=== PATIENT | female | born 1985 | race Caucasian/White ===

== ENCOUNTER 2018-12-17 06:06 | Emergency (ER) | payer MEDICARE ==
[2018-12-17] MEDS ORDERED: TORAdol 30 mg Injection IV ONE (06:40)
[2018-12-17] MEDS ORDERED: Sodium Chloride 0.9% 1000 ML 1,000 ML IV STA (06:40)
[2018-12-17 06:45] LABS: BASOPHIL % 0.3 % (0.0-0.4); Basophil (Absolute #) 0.03 (0-0.4); Eosinophil % 1.5 % (0.00-5.0); Eosinophil (Absolute #) 0.16 (0-0.5); Granulocytes % 63.8 % (36.0-66.0); Hematocrit 40.7 % (35-47); Hemoglobin 13.3 gm/dl (12.0-16.0); Lymphocyte (Absolute #) 2.92 (1.0-4.6); Lymphocytes % 27.8 % (24.0-44.0); Mean Cell Volume 93.3 fl (78-100); Mean Corpuscular Hemoglobin 30.5 pg (26-32); Mean Corpuscular Hgb Concent. 32.7 g/dl (32-36); Mean Platelet Volume 10.9 fl (6-9.5); Monocyte (Absolute #) 0.69 (0.0-1.3); Monocytes % 6.6 % (0.0-12.0); Platelet Count 350 K/mm3 (150-450); Red Blood Count 4.36 M/mm3 (4.1-5.4); Red Cell Distribution Width 13.8 % (11.5-14.0); White Blood Count 10.5 K/mm3 (4.0-10.5)
[2018-12-17] MEDS ORDERED: TORAdol 30 mg Injection ONE (06:46)
[2018-12-17] MEDS ORDERED: Sodium Chloride 0.9% 1000 ML 1,000 ML ONE (06:46)
[2018-12-17 06:59] LABS: Appearance CLEAR (CLEAR); Bacteria RARE /HPF (NEGATIVE); Bilirubin NEGATIVE (NEGATIVE); Blood NEGATIVE Ery/ul (0-5); Epithelial Cells FEW /HPF (FEW); Glucose NEGATIVE (NEGATIVE); Ketones NEGATIVE (NEGATIVE); Leukocyte Esterase NEGATIVE (NEGATIVE); Mucus SLIGHT /HPF (NEGATIVE); Nitrite NEGATIVE (NEGATIVE); Protein,Urine Dip NEGATIVE (Negative); Specific Gravity 1.006 (1.005-1.025); Urobilinogen NEGATIVE mg/dL (0-1); WBC 0-2 /HPF (0-5)
--- NOTE | 2018-12-17 06:59 | ERPHSYRPT ---
- History of Present Illness Exam Limitations: no limitations Patient Subjective Stated Complaint: pt states she has had lower abd pain for the last week. states she was seen at [facility] er recently and had a ct scan with iv dye done. states she has been having problems with abd pain for years and has had mult xryas and ct scans done. Triage Nursing Assessment: pt alert and oriented, answers questions approp. pt ambulatoryw ith steady gait noted. skin pink warm and dry. respirations nonlabored with lungs cta. abd soft and nontender to light palpation. bowel sounds present x4 Timing/Duration: today Activities at Onset: none Quality: aching, stabbing Abdominal Pain Onset Location: RLQ, LLQ, other (back) Pain Radiation: RLQ, LLQ Severity of Pain-Max: severe Severity of Pain-Current: severe Modifying Factors: Worsens With: breathing, coughing, defecating, eating, lying down, movement, rest Associated Symptoms: back, No chest pain, No diaphoresis, No diarrhea, No fever/ chills, No fatigue, No headache, No heartburn, No loss of appetite, No nausea, No neck pain, No rash, No shortness of breath, No syncope, No vomiting, No weakness Previous symptoms: same symptoms as today, recently seen (seen on 12/14/2018 with labs, [facility] scan at [facility], no etiology found) Hx Tetanus, Diphtheria Vaccination/Date Given: No Hx Influenza Vaccination/Date Given: No Hx Pneumococcal Vaccination/Date Given: No Immunizations Up to Date: No <JARAD HANNA - Last Filed: 12/17/18 06:54> <JOSE J WRIGHT - Last Filed: 12/17/18 07:37> - History of Present Illness Time Seen by Provider: 12/17/18 06:30 Physician History: Patient has had lower abdominal pain and lower back pain for one year. She has been seen in EDs, doctor office and GI specialists without any cause to her pain. Pain flared-up 2.5 hours prior to coming to the emergency department this morning. (JARAD HANNA) Allergies/Adverse Reactions: quetiapine [From Seroquel] Allergy (Verified 12/17/18 06:23) trazodone Allergy (Verified 12/17/18 06:23) Home Medications: Asenapine Maleate [Saphris] 5 mg SL DAILY 12/17/18 [History] Clonazepam 0.5 mg [Klonopin 0.5 MG] 0.5 mg PO TID 12/17/18 [History] Dicyclomine HCl 20 mg [Bentyl 20 mg] 20 mg PO BID 12/17/18 [History] Ondansetron ODT 4 MG [Zofran Odt 4 mg] 4 mg PO Q6H PRN PRN 12/17/18 [ History] - Review of Systems Constitutional: No Fever, No Chills Eyes: No Symptoms Ears, Nose, & Throat: No Symptoms Respiratory: No Cough, No Dyspnea Cardiac: No Chest Pain, No Edema, No Syncope Abdominal/Gastrointestinal: Abdominal Pain, No Nausea, No Vomiting, No Diarrhea Genitourinary Symptoms: No Dysuria, No Frequency, No Hematuria, No Flank Pain Musculoskeletal: Back Pain, No Neck Pain Skin: No Rash Neurological: No Dizziness, No Focal Weakness, No Sensory Changes Psychological: No Symptoms Endocrine: No Symptoms All Other Systems: Reviewed and Negative <JARAD HANNA - Last Filed: 12/17/18 06:54> - Past Medical History Pertinent Past Medical History: Yes Neurological History: Migraines ENT History: No Pertinent History Cardiac History: High Cholesterol, Hypertension Respiratory History: No Pertinent History Endocrine Medical History: No Pertinent History Musculoskeletal History: No Pertinent History GI Medical History: GERD History: No Pertinent History Psycho-Social History: Bipolar Female Reproductive Disorders: No Pertinent History Other Medical History: STOPPED MEDS 1 MONTH AGO - Past Surgical History Past Surgical History: Yes Neuro Surgical History: No Pertinent History Cardiac: No Pertinent History Respiratory: No Pertinent History Gastrointestinal: Cholecystectomy Genitourinary: No Pertinent History Musculoskeletal: No Pertinent History Female Surgical History: No Pertinent History - Social History Smoking Status: Former smoker How long have you smoked: 15 Exposure to second hand smoke: Yes Drug Use: none Patient Lives Alone: Yes - Female History Hx Last Menstrual Period: mirena Hx Now: No <JARAD HANNA BO - Last Filed: 12/17/18 06:54> - Physical Exam General Appearance: no apparent distress, alert Eye Exam: PERRL/EOMI, eyes nml inspection Ears, Nose, Throat Exam: normal ENT inspection, pharynx normal, moist mucous membranes Neck Exam: normal inspection, non-tender, supple, full range of motion Respiratory Exam: normal breath sounds, lungs clear, No respiratory distress Cardiovascular Exam: regular rate/rhythm, normal heart sounds, normal peripheral pulses, capillary refill <2 sec Gastrointestinal/Abdomen Exam: soft, normal bowel sounds, No tenderness, No distention, No mass, No pulsatile mass, No rebound, No hernia Back Exam: normal inspection, normal range of motion, No CVA tenderness, No vertebral tenderness Extremity Exam: normal inspection, normal range of motion, pelvis stable Neurologic Exam: alert, oriented x 3, cooperative, normal mood/affect, nml cerebellar function, sensation nml, No motor deficits Skin Exam: normal color, warm, dry SpO2 Interpretation: normal SpO2: 96 O2 Delivery: Room Air <JARAD HANNA - Last Filed: 12/17/18 06:54> - Nursing Vital Signs Nursing Vital Signs: Initial Vital Signs Temperature 98.7 F 12/17/18 06:10 Pulse Rate 86 12/17/18 06:10 Respiratory Rate 18 12/17/18 06:10 Blood Pressure 152/99 12/17/18 06:10 O2 Sat by Pulse Oximetry 96 12/17/18 06:10 Pain Scale Pain Intensity 8 Ordered Tests: Active Orders 24 hr Category Date Time Status IV Insertion STAT Care 12/17/18 06:40 Active AMYLASE Stat Lab 12/17/18 06:40 Completed CBC W DIFF Stat Lab 12/17/18 06:40 Completed CMP Stat Lab 12/17/18 06:40 Completed HCG,QUALITATIVE URINE Stat Lab 12/17/18 06:45 Completed LIPASE Stat Lab 12/17/18 06:40 Completed Lactic Acid Stat Lab 12/17/18 06:40 Completed UA W/RFX UR CULTURE Stat Lab 12/17/18 06:45 Completed Medication Summary Generic Name Dose Route Start Last Admin Trade Name Freq PRN Reason Stop Dose Admin Sodium Chloride 1,000 mls @ 999 mls/hr 12/17/18 06:40 12/17/18 06:49 Sodium Chloride 0.9% 1000 Ml IV 12/17/18 07:40 999 mls/hr .Q1H1M STA Administration Discontinued Medications Generic Name Dose Route Start Last Admin Trade Name Freq PRN Reason Stop Dose Admin Sodium Chloride Confirm 12/17/18 06:46 Sodium Chloride 0.9% 1000 Ml Administered 12/17/18 06:47 Dose 1,000 mls @ ud .ROUTE .[facility] Ketorolac Tromethamine 30 mg 12/17/18 06:40 12/17/18 06:47 Toradol 30 Mg Injection IV 12/17/18 06:41 30 mg STAT ONE Administration Ketorolac Tromethamine Confirm 12/17/18 06:46 Toradol 30 Mg Injection Administered 12/17/18 06:47 Dose 30 mg .ROUTE .[facility] Lab/Rad Data: Laboratory Result Diagrams 12/17/18 06:40 12/17/18 06:40 Laboratory Results 12/17/18 12/17/18 12/17/18 Range/Units 06:45 06:45 06:40 WBC (4.0-10.5) K/mm3 RBC (4.1-5.4) M/mm3 Hgb (12.0-16.0) gm/dl Hct (35-47) % MCV (78-100) fl MCH (26-32) pg MCHC (32-36) g/dl RDW (11.5-14.0) % Plt Count (150-450) K/mm3 MPV (6-9.5) fl Gran % (36.0-66.0) % Eos # (Auto) (0-0.5) Absolute Lymphs (auto) (1.0-4.6) Absolute Monos (auto) (0.0-1.3) Lymphocytes % (24.0-44.0) % Monocytes % (0.0-12.0) % Eosinophils % (0.00-5.0) % Basophils % (0.0-0.4) % Absolute Granulocytes (1.4-6.9) Basophils # (0-0.4) Sodium 141 (137-145) mmol/L Potassium 4.0 (3.5-5.1) mmol/L Chloride 107 (98-107) mmol/L Carbon Dioxide 26 (22-30) mmol/L Anion Gap 11.8 (5-15) MEQ/L BUN 8 (7-17) mg/dL Creatinine 0.58 (0.52-1.04) mg/dL Estimated GFR > 60.0 ML/MIN Glucose 89 (74-106) mg/dL Lactic Acid (0.4-2.0) Calcium 9.3 (8.4-10.2) mg/dL Total Bilirubin 0.60 (0.2-1.3) mg/dL AST 29 (14-36) U/L ALT 17 (0-35) U/L Alkaline Phosphatase 100 (38-126) U/L Serum Total Protein 8.0 (6.3-8.2) g/dL Albumin 4.4 (3.5-5.0) g/dL Amylase 61 (30-110) U/L Lipase 36 (23-300) U/L Urine Color YELLOW (YELLOW) Urine Appearance CLEAR (CLEAR) Urine pH 6.0 (5-6) Ur Specific [place] 1.006 (1.005-1.025) Urine Protein NEGATIVE (Negative) Urine Ketones NEGATIVE (NEGATIVE) Urine Blood NEGATIVE (0-5) Sammy/ul Urine Nitrite NEGATIVE (NEGATIVE) Urine Bilirubin NEGATIVE (NEGATIVE) Urine Urobilinogen NEGATIVE (0-1) mg/dL Ur Leukocyte Esterase NEGATIVE (NEGATIVE) Urine WBC (Auto) 0-2 (0-5) /HPF Urine RBC (Auto) NONE (0-2) /HPF U Epithel Cells (Auto) FEW (FEW) /HPF Urine Bacteria (Auto) RARE (NEGATIVE) /HPF Urine Mucus (Auto) SLIGHT (NEGATIVE) /HPF Urine Culture Reflexed NO (NO) Urine Glucose NEGATIVE (NEGATIVE) mg/dL Urine HCG, Qual NEGATIVE (Negative) 12/17/18 12/17/18 Range/Units 06:40 06:40 WBC 10.5 (4.0-10.5) K/mm3 RBC 4.36 (4.1-5.4) M/mm3 Hgb 13.3 (12.0-16.0) gm/dl Hct 40.7 (35-47) % MCV 93.3 (78-100) fl MCH 30.5 (26-32) pg MCHC 32.7 (32-36) g/dl RDW 13.8 (11.5-14.0) % Plt Count 350 (150-450) K/mm3 MPV 10.9 H (6-9.5) fl Gran % 63.8 (36.0-66.0) % Eos # (Auto) 0.16 (0-0.5) Absolute Lymphs (auto) 2.92 (1.0-4.6) Absolute Monos (auto) 0.69 (0.0-1.3) Lymphocytes % 27.8 (24.0-44.0) % Monocytes % 6.6 (0.0-12.0) % Eosinophils % 1.5 (0.00-5.0) % Basophils % 0.3 (0.0-0.4) % Absolute Granulocytes 6.70 (1.4-6.9) Basophils # 0.03 (0-0.4) Sodium (137-145) mmol/L Potassium (3.5-5.1) mmol/L Chloride (98-107) mmol/L Carbon Dioxide (22-30) mmol/L Anion Gap (5-15) MEQ/L BUN (7-17) mg/dL Creatinine (0.52-1.04) mg/dL Estimated GFR ML/MIN Glucose (74-106) mg/dL Lactic Acid 1.1 (0.4-2.0) Calcium (8.4-10.2) mg/dL Total Bilirubin (0.2-1.3) mg/dL AST (14-36) U/L ALT (0-35) U/L Alkaline Phosphatase (38-126) U/L Serum Total Protein (6.3-8.2) g/dL Albumin (3.5-5.0) g/dL Amylase (30-110) U/L Lipase (23-300) U/L Urine Color (YELLOW) Urine Appearance (CLEAR) Urine pH (5-6) Ur Specific [place] (1.005-1.025) Urine Protein (Negative) Urine Ketones (NEGATIVE) Urine Blood (0-5) Sammy/ul Urine Nitrite (NEGATIVE) Urine Bilirubin (NEGATIVE) Urine Urobilinogen (0-1) mg/dL Ur Leukocyte Esterase (NEGATIVE) Urine WBC (Auto) (0-5) /HPF Urine RBC (Auto) (0-2) /HPF U Epithel Cells (Auto) (FEW) /HPF Urine Bacteria (Auto) (NEGATIVE) /HPF Urine Mucus (Auto) (NEGATIVE) /HPF Urine Culture Reflexed (NO) Urine Glucose (NEGATIVE) mg/dL Urine HCG, Qual (Negative) - Progress Discussed with : Zachary Morel (oncoming ED attending who is also patient' s physician) Counseled pt/family regarding: lab results, diagnosis, need for follow-up <JARAD HANNA - Last Filed: 12/17/18 06:54> - Progress Progress: unchanged <KYLEJOSE J - Last Filed: 12/17/18 07:37> - Progress Progress Note: 12/17/18 07:00 [facility] the [facility] and care transferred to Dr Wright. Dr Wright will determine final disposition of the patient after evaluation of labs and patient. (JARAD HANNA) <JARAD HANNA - Last Filed: 12/17/18 06:54> - Departure Departure Disposition: Home Critical Care Time: No <JOSE J WRIGHT - Last Filed: 12/17/18 07:37> - Departure Clinical Impression: Chronic bilateral lower abdominal pain Condition: Stable Referrals: DOCTOR,NO FAMILY [Primary Care Provider] - Instructions: Acute Abdomen (Belly Pain), Adult (DC) Additional Instructions: ABDOMINAL PAIN 1. There are several different causes for abdominal pain, some of which may not be able to be identified on initial examination. 2. The important thing to remember is that bodily functions can change in a short period of time. If you notice any of the following symptoms, return to the emergency department or consult your doctor immediately: A. Worsening pain or no improvement in the next 12 hours. B. Increasing, severe abdominal pain C. Blood in stool D. Black stools E. Persistent vomiting F. Fever or chills or other symptoms Discharge/Care Plan MARJAN COLINDRESI CHRISTINE was seen on 12/17/18 in the Emergency Room. The patient was counseled regarding Diagnosis,Lab results, Imaging studies, need for follow up and when to return to the Emergency Room. Prescriptions given: Discharge Note I have spoken with the patient and/or caregivers. I have explained the patient' s condition, diagnosis and treatment plan based on the information available to me at this time. I have answered the patient's and/or caregiver's questions and addressed any concerns. The patient and/or caregivers have as good understanding of the patient's diagnosis, condition and treatment plan as can be expected at this point. The vital signs have been stable. The patient's condition is stable and appropriate for discharge from the emergency department. The patient will pursue further outpatient evaluation with the primary care physician or other designated or consulting physician as outlined in the discharge instructions. The patient and/or caregivers are agreeable to this plan of care and follow-up instructions have been explained in detail. The patient and/or caregivers have received these instruction. The patient/and or caregivers are aware that any significant change in condition or worsening of symptoms should prompt an immediate return to this or the closest emergency department or call 911. Patient is strongly advised to follow up with her Primary care physician in next 2-3 days for further workup
[2018-12-17 07:01] LABS: ALBUMIN 4.4 g/dL (3.5-5.0); ALKALINE PHOSPHATASE 100 U/L (38-126); AMYLASE 61 U/L (30-110); ANION GAP 11.8 MEQ/L (5-15); BLOOD UREA NITROGEN 8 mg/dL (7-17); CHLORIDE 107 mmol/L (98-107); Calcium 9.3 mg/dL (8.4-10.2); Carbon Dioxide 26 mmol/L (22-30); Creatinine 1 0.58 mg/dL (0.52-1.04); Glucose 89 mg/dL (74-106); LIPASE 36 U/L (23-300); SGOT/AST 29 U/L (14-36); SGPT/ALT 17 U/L (0-35); SODIUM 141 mmol/L (137-145)
[2018-12-17 07:47] VITALS: BP 99/74; PULSE 82; O2SAT 97
== END 2018-12-17 07:57 | disposition home or self-care (01) ==
LOC: ED 06:06
DX: R10.32 Left lower quadrant pain (principal); R10.31 Right lower quadrant pain
CPT/HCPCS: 36000; 36415; 80053; 81001; 82150; 83605; 83690; 84703; 85025; 96360; 96374; 99284; J1885

== ENCOUNTER 2024-06-09 10:54 | Emergency (ER) | payer MEDICARE ==
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
[2024-06-09 11:14] VITALS: RESP 16; TEMP 97.9
[2024-06-09 12:03] VITALS: PULSE 80
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
[2024-06-09 13:46] VITALS: BP 134/103; O2SAT 98
== END 2024-06-09 13:49 | disposition home or self-care (01) ==
LOC: ED 10:54
DX: S16.1XXA Strain of muscle, fascia and tendon at neck level, initial encounter (principal); S93.401A Sprain of unspecified ligament of right ankle, initial encounter; S83.91XA Sprain of unspecified site of right knee, initial encounter; S20.211A Contusion of right front wall of thorax, initial encounter; Y04.8XXA Assault by other bodily force, initial encounter; E78.5 Hyperlipidemia, unspecified; I10 Essential (primary) hypertension; Z79.899 Other long term (current) drug therapy
CPT/HCPCS: 71100; 72125; 73560; 73610; 99284